=== PATIENT | female | born 1985 | race Caucasian/White ===

== ENCOUNTER 2023-02-27 10:55 | Emergency (ER) | payer OTHER, SELFPAY ==
[2023-02-27 11:22] VITALS: BP 134/100; PULSE 96; RESP 20; TEMP 37.1; O2SAT 97; BMI 33.6
[2023-02-27 11:50] LABS: Appearance Urine UA TURBID; Color Urine UA ORANGE
[2023-02-27 11:52] LABS: Pregnancy Test Urine Negative (Negative)
[2023-02-27 11:54] LABS: RBC Urine 30-100/HPF (0-5/HPF); WBC Urine 0-1/HPF (0-5/HPF)
[2023-02-27 11:55] LABS: Bacteria Urine Occasional (0-1); Culture Indicated Urine Cult Not Indicated; Squamous Epithelial Cell Urine 0-1 /HPF (0-5/HPF)
--- NOTE | 2023-02-27 11:59 | DI.CT.S_ITS ---
PROCEDURE: CT ABDOMEN PELVIS W CON INDICATIONS: ABDOMEN PAIN TECHNIQUE: After the administration of intravenous contrast, axial sections acquired from the lung bases to the pubic symphysis. Coronal and sagittal reformats were performed. For radiation dose reduction, the following was used: automated exposure control, adjustment of mA and/or kV according to patient size. COMPARISON: None. FINDINGS: Image quality: Excellent. Lung bases: Unremarkable. Heart: No significant findings. ABDOMEN: Liver: Unremarkable. Gallbladder: Unremarkable. Biliary ducts: Unremarkable. Pancreas: Unremarkable. Spleen: Unremarkable. Adrenal Glands: Unremarkable. Kidneys and Ureters: Unremarkable. Stomach and Bowel: The distal ileum inserting on the cecum may or may not be the original terminal ileum. As it enters the cecum, there is mild wall thickening, predominantly involving the cecum. This may potentially represent mild changes of Crohn's ileocolitis, or may be postsurgical. The small bowel and colon are otherwise unremarkable. Peritoneum: No abnormal intraperitoneal fluid. No free air. Ventral Wall: No hernias. Abdominal Nodes: No retroperitoneal or mesenteric adenopathy by size criteria. Vessels: Aorta and inferior vena cava are normal in size. PELVIS: Pelvic Organs: There is a ruptured collapsed left ovarian cyst, which is enhancing peripherally, with a small amount of associated pelvic ascites, slightly greater than physiologic.. Bladder: Unremarkable. Pelvic Nodes: No enlarged lymph nodes. Miscellaneous: No hernias are seen. Bones: Unremarkable. IMPRESSION: 1. There is thickening involving the cecum and most distal aspect of the ileum which may potentially represent mild changes of ileocolitis secondary to Crohn's disease, or may be postsurgical. 2. Ruptured left ovarian cyst with mild pelvic ascites. Dictated by: Chandler Torres M.D. on 02/27/2023 at 13:47 Approved by: Chandler Torres M.D. on 02/27/2023 at 14:03
[2023-02-27] MEDS: KETOROLAC 30 MG/ML VIAL 15 MG IV (12:22)
[2023-02-27] MEDS: ONDANSETRON 4 MG/2 ML INJ IV ×2 (12:23→14:48)
[2023-02-27 12:25] LABS: Add Manual Diff / Slide Review NO; Basophils Absolute Auto 100 /uL (0-100); Basophils Percent Auto 0.8 % (0-2); Eosinophils Absolute Auto 200 /uL (0-450); Eosinophils Percent Auto 2.4 % (2-4); Hematocrit 42.1 % (36-46); Hemoglobin 14.3 g/dL (12.0-16.0); Lymphocytes Absolute Auto 3400 /uL (1100-4500); Lymphocytes Percent Auto 33.4 % (25-40); Mean Corpuscular HGB Conc 33.9 % (30-36); Mean Corpuscular Hemoglobin 28.7 PG (26-34); Mean Corpuscular Volume 84.8 fL (80-100); Monocytes Absolute Auto 500 /uL (0-900); Monocytes Percent Auto 5.1 % (3-14); Neutrophils Absolute Auto 6000 /uL (1500-7000); Neutrophils Percent Auto 58.3 % (50-75); Platelet Count 343 X10^3/uL (150-400); Prothrombin Time 11.7 SECONDS (10.1-12.7); Red Blood Cell Count 4.96 X10^6/uL (4.0-5.2); Red Cell Distribution Width 13.1 % (11.6-14.8); White Blood Cell Count 10.2 X10^3/uL (4.5-11.0)
--- NOTE | 2023-02-27 12:25 | PC.NURSE ---
Pt taken to rm 5, NAD easy work of breathing. IV placed. pt advised to wait in fast track waiting area for CT scan. Pt ambulated out of room with stready gait. Called on red phone and spoke to CHERYL Oneil reporting intense back pain and nausea. Terrance Cardenas PAC made aware. Pt brought by RN to room 3 and torodol and zofran given. emesis bag provided. pt ambulated to CT with TANNER Ryan.
[2023-02-27 12:28] LABS: PTT Partial Thromboplastin Tim 33 SECONDS (26-36)
[2023-02-27 12:29] LABS: Alanine Aminotransferase 18 IU/L (<35); Albumin 4.2 g/dL (3.5-5.0); Albumin Globulin Ratio 1.2 (1.0-2.8); Alkaline Phosphatase 54 U/L (38-126); Aspartate Aminotransferase 23 IU/L (14-36); BUN Creatinine Ratio 14.3 (6-22); Bilirubin Total 0.4 mg/dL (0.2-1.3); Blood Urea Nitrogen 9 mg/dL (7-17); Calcium 9.2 mg/dL (8.4-10.2); Carbon Dioxide 23 mmol/L (22-32); Chloride 105 mmol/L (98-107); Estimated Glomerular Filt Rate > 60 mL/min (>60); Globulin 3.5 g/dL (1.7-4.1); Glucose 101 mg/dL (70-100); HEMOLYSIS 17 (0-50); Lipase 59 U/L (23-300); Potassium 4.3 mmol/L (3.4-5.1); Sodium 136 mmol/L (137-145); Total Protein 7.7 g/dL (6.3-8.2)
[2023-02-27] MEDS: MORPHINE 4 MG/ML INJ IV ×2 (13:18→14:48)
--- NOTE | 2023-02-27 13:26 | ED.FEMALEGU ---
HPI - Female Genitourinary <Terrance Cardenas PA-C - Last Filed: 02/27/23 15:48> General Chief complaint: Urogenital-Female Stated complaint: UTI/Kidney Infection Time Seen by Provider: 02/27/23 11:39 Source: patient Mode of arrival: Family Vehicle History of Present Illness HPI Narrative: 37-year-old female with past medical history Crohn's disease presents to the ED with 5 days of dysuria, urinary urgency, urinary frequency, flank pain. Patient states that she started taking azo when she started feeling the symptoms of a UTI, however her symptoms persisted and patient states that she has had bilateral flank pain and lower back pain, nausea, vomiting for the last 3 days. Patient states that the pain is also wrapping around to her right groin. Patient saw a [facility] provider 2 days ago who started her on Macrobid for a UTI. Patient has taken 2 doses of the antibiotic thus far. Patient states that she just does not feel well, therefore came into the ED today for further evaluation. Patient has had a partial bowel resection due to the Crohn's, no longer has an appendix. Related Data Home Medications Medication Instructions Recorded Confirmed nitrofurantoin 1 cap PO BID 02/27/23 02/27/23 monohydrate/macrocrystals 100 mg capsule Previous Rx's Medication Instructions Recorded prednisone 20 mg tablet See Rx Instructions .Route 02/27/23 .COMPLEX #11 tabs tramadol 50 mg tablet 50 mg PO TID PRN pain 3 days #10 02/27/23 tabs Allergies Allergy/AdvReac Type Severity Reaction Status Date / Time mesalamine [From Asacol] Allergy Rash Verified 02/27/23 11:31 Sulfa (Sulfonamide Allergy Swelling Verified 02/27/23 11:30 Antibiotics) of Lip/Tongue/Throat prochlorperazine AdvReac Anxiety Verified 02/27/23 11:32 [From Compazine] alchol wipes AdvReac Rash Uncoded 02/27/23 11:33 Review of Systems <Terrance Cardenas PA-C - Last Filed: 02/27/23 15:48> Review of Systems ROS Unobtainable: All systems reviewed & are unremarkable except as noted in HPI and below Constitutional Constitutional: Denies chills, Reports fatigue, Denies fever(s), Denies frequent falls, Denies lethargy and Denies weakness Eyes Eyes: Denies change in vision, Denies eye discharge, Denies irritation and Denies loss of vision ENT Ears, Nose, Mouth, and Throat: Denies change in voice, Denies dizziness, Denies neck pain, Denies sore throat and Denies throat swelling Cardiovascular Cardiovascular: Denies chest pain, Denies irregular heart rhythm, Denies lightheadedness, Denies palpitations, Denies dyspnea, Denies dyspnea on exertion and Denies orthopnea Respiratory Respiratory: Denies cough, Denies dyspnea, Denies dyspnea on exertion and Denies wheezing Gastrointestinal Gastrointestinal: Reports abdominal pain, Denies change in bowel habits, Denies diarrhea, Reports nausea and Reports vomiting Genitourinary Genitourinary: Reports hematuria, Reports dysuria, Denies flank pain, Denies urinary incontinence and Reports urinary urgency Musculoskeletal Musculoskeletal: Reports back pain, Denies muscle weakness, Denies neck pain, Denies numbness and Denies tingling Integumentary/Breasts Skin/Breast: Denies pruritus, Denies erythema, Denies rash and Denies wounds Neurologic Neurologic: Denies behavioral changes, Denies confusion, Denies dizziness, Denies frequent falls, Denies loss of vision, Denies numbness, Denies tingling and Denies weakness Psychiatric Psychiatric: Denies anxiety, Denies behavioral changes, Denies confusion, Denies depression, Denies homicidal ideation and Denies suicidal ideation Endocrine Endocrine: Reports fatigue, Denies flushing and Denies palpitations Hematologic/Lymphatic Hematologic/Lymphatic: Denies easy bruising Allergic/Immunologic Allergic/Immunologic: Denies urticaria, Denies throat swelling and Denies wheezing Patient History <Terrance Cardenas PA-C - Last Filed: 02/27/23 15:48> alcohol intake frequency: 0-2 drinks per day Substance Use Type: marijuana Exam <Terrance Cardenas PA-C - Last Filed: 02/27/23 15:48> Narrative Exam Narrative: Const General:?cooperative, healthy appearing and comfortable [facility] Head:?normal to inspection Ears:?hearing grossly normal bilaterally Nose:?external nose normal Face and sinus:?normal facial exam and sinuses nontender Mouth:?oral mucosae normal Throat:?posterior oropharynx normal Eyes General:?appearance normal, both eyes and all related structures Neck Neck:?normal visual inspection and no lymphadenopathy noted Resp Effort & Inspection:?normal respiratory effort Auscultation:?clear to auscultation bilaterally Cardio Rate:?regular rate Rhythm:?regular rhythm GI Abdomen is soft, nondistended. Abdomen is tender to palpation in the right lower quadrant. There is no CVA tenderness. Neuro General:?patient alert, patient awake and patient oriented x3 Initial Vital Signs Initial Vital Signs: Vital Signs Temperature 98.7 F 02/27/23 11:22 Pulse Rate 96 H 02/27/23 11:22 Respiratory Rate 20 02/27/23 11:22 Blood Pressure 134/100 H 02/27/23 11:22 Pulse Oximetry 97 02/27/23 11:22 Oxygen Delivery Method Room Air 02/27/23 11:22 <Lyn Hamilton DO - Last Filed: 03/01/23 07:32> Initial Vital Signs Initial Vital Signs: Vital Signs Temperature 98.7 F 02/27/23 11:22 Pulse Rate 96 H 02/27/23 11:22 Respiratory Rate 20 02/27/23 11:22 Blood Pressure 134/100 H 02/27/23 11:22 Pulse Oximetry 97 02/27/23 11:22 Oxygen Delivery Method Room Air 02/27/23 11:22 Course <Terrance Cardenas PA-C - Last Filed: 02/27/23 15:48> Orders Ordered: Discontinued Medications Ketorolac Tromethamine (Ketorolac 30 Mg/Ml Vial) 15 mg IV NOW ONE Stop: 02/27/23 12:20 Last Admin: 02/27/23 12:22 Dose: 15 mg Documented By: TRESA Morphine Sulfate (Morphine 4 Mg/Ml Inj) 4 mg IV NOW ONE Stop: 02/27/23 13:11 Last Admin: 02/27/23 13:18 Dose: 4 mg Documented By: TRESA Morphine Sulfate (Morphine 4 Mg/Ml Inj) 4 mg IV NOW ONE Stop: 02/27/23 14:39 Last Admin: 02/27/23 14:48 Dose: 4 mg Documented By: TRESA Ondansetron HCl (Ondansetron 4 Mg Odt) 4 mg PO NOW PRN PRN Reason: Nausea And Vomiting Ondansetron HCl (Ondansetron 4 Mg/2 Ml Inj) 4 mg IV NOW PRN PRN Reason: Nausea And Vomiting Last Admin: 02/27/23 12:23 Dose: 4 mg Documented By: TRESA Ondansetron HCl (Ondansetron 4 Mg/2 Ml Inj) 4 mg IV NOW ONE Stop: 02/27/23 14:38 Last Admin: 02/27/23 14:48 Dose: 4 mg Documented By: CTS Vital Signs Vital signs: Vital Signs - 8 hr 02/27/23 11:22 02/27/23 13:27 02/27/23 14:53 Temperature 98.7 F Pulse Rate 96 H 84 74 Respiratory Rate 20 16 16 Blood Pressure 134/100 H 117/82 131/83 Pulse Oximetry 97 99 97 Oxygen Delivery Method Room Air Room Air Room Air <Lyn Hamilton, DO - Last Filed: 03/01/23 07:32> Orders Ordered: Discontinued Medications Ketorolac Tromethamine (Ketorolac 30 Mg/Ml Vial) 15 mg IV NOW ONE Stop: 02/27/23 12:20 Last Admin: 02/27/23 12:22 Dose: 15 mg Documented By: TRESA Morphine Sulfate (Morphine 4 Mg/Ml Inj) 4 mg IV NOW ONE Stop: 02/27/23 13:11 Last Admin: 02/27/23 13:18 Dose: 4 mg Documented By: TRESA Morphine Sulfate (Morphine 4 Mg/Ml Inj) 4 mg IV NOW ONE Stop: 02/27/23 14:39 Last Admin: 02/27/23 14:48 Dose: 4 mg Documented By: TRESA Ondansetron HCl (Ondansetron 4 Mg Odt) 4 mg PO NOW PRN PRN Reason: Nausea And Vomiting Ondansetron HCl (Ondansetron 4 Mg/2 Ml Inj) 4 mg IV NOW PRN PRN Reason: Nausea And Vomiting Last Admin: 02/27/23 12:23 Dose: 4 mg Documented By: TRESA Ondansetron HCl (Ondansetron 4 Mg/2 Ml Inj) 4 mg IV NOW ONE Stop: 02/27/23 14:38 Last Admin: 02/27/23 14:48 Dose: 4 mg Documented By: TRESA Vital Signs Vital signs: Vital Signs - 8 hr 02/27/23 11:22 02/27/23 13:27 02/27/23 14:53 Temperature 98.7 F Pulse Rate 96 H 84 74 Respiratory Rate 20 16 16 Blood Pressure 134/100 H 117/82 131/83 Pulse Oximetry 97 99 97 Oxygen Delivery Method Room Air Room Air Room Air MDM - Female Genitourinary <Hyma ROLANDO Cardenas - Last Filed: 02/27/23 15:48> Lab Data 02/27/23 12:05 02/27/23 12:05 Labs: Lab Results 02/27/23 02/27/23 02/27/23 Range/Units 11:40 11:40 12:05 WBC 10.2 (4.5-11.0) X10^3/uL RBC 4.96 (4.0-5.2) X10^6/uL Hgb 14.3 (12.0-16.0) g/dL Hct 42.1 (36-46) % MCV 84.8 (80-100) fL MCH 28.7 (26-34) PG MCHC 33.9 (30-36) % RDW 13.1 (11.6-14.8) % Plt Count 343 (150-400) X10^3/uL Neut % (Auto) 58.3 (50-75) % Lymph % (Auto) 33.4 (25-40) % [place] % (Auto) 5.1 (3-14) % Eos % (Auto) 2.4 (2-4) % Baso % (Auto) 0.8 (0-2) % Neut # (Auto) 6000 (5179-5571) /uL Lymph # (Auto) 3400 (5505-1706) /uL [place] # (Auto) 500 (0-900) /uL Eos # (Auto) 200 (0-450) /uL Baso # (Auto) 100 (0-100) /uL PT (10.1-12.7) SECONDS INR (0.9-1.3) APTT (26-36) SECONDS Sodium (137-145) mmol/L Potassium (3.4-5.1) mmol/L Chloride (98-107) mmol/L Carbon Dioxide (22-32) mmol/L BUN (7-17) mg/dL Creatinine (0.52-1.04) mg/dL Estimated GFR (>60) mL/min BUN/Creatinine Ratio (6-22) Glucose (70-100) mg/dL Calcium (8.4-10.2) mg/dL Total Bilirubin (0.2-1.3) mg/dL AST (14-36) IU/L ALT (<35) IU/L Alkaline Phosphatase (38-126) U/L Total Protein (6.3-8.2) g/dL Albumin (3.5-5.0) g/dL Globulin (1.7-4.1) g/dL Albumin/Globulin Ratio (1.0-2.8) Lipase (23-300) U/L Urine Color Dent Urine Appearance Turbid Urine pH TNP Ur Specific [place] TNP Urine Protein TNP Urine Glucose (UA) TNP Urine Ketones TNP Urine Occult Blood TNP Urine Nitrate TNP Urine Bilirubin TNP Urine Urobilinogen TNP Ur Leukocyte Esterase TNP Urine RBC 30-100/hpf H (0-5/HPF) Urine WBC 0-1/hpf (0-5/HPF) Ur Squamous Epith Cells 0-1 /hpf (0-5/HPF) Urine Bacteria Occasional (0-1) (None) Ur Culture Indicated? Cult not indicated Urine Test Negative (Negative) 02/27/23 02/27/23 Range/Units 12:05 12:05 WBC (4.5-11.0) X10^3/uL RBC (4.0-5.2) X10^6/uL Hgb (12.0-16.0) g/dL Hct (36-46) % MCV (80-100) fL MCH (26-34) PG MCHC (30-36) % RDW (11.6-14.8) % Plt Count (150-400) X10^3/uL Neut % (Auto) (50-75) % Lymph % (Auto) (25-40) % [place] % (Auto) (3-14) % Eos % (Auto) (2-4) % Baso % (Auto) (0-2) % Neut # (Auto) (2115-4841) /uL Lymph # (Auto) (9750-9627) /uL [place] # (Auto) (0-900) /uL Eos # (Auto) (0-450) /uL Baso # (Auto) (0-100) /uL PT 11.7 (10.1-12.7) SECONDS INR 1.0 (0.9-1.3) APTT 33 (26-36) SECONDS Sodium 136 L (137-145) mmol/L Potassium 4.3 (3.4-5.1) mmol/L Chloride 105 (98-107) mmol/L Carbon Dioxide 23 (22-32) mmol/L BUN 9 (7-17) mg/dL Creatinine 0.63 (0.52-1.04) mg/dL Estimated GFR > 60 (>60) mL/min BUN/Creatinine Ratio 14.3 (6-22) Glucose 101 H (70-100) mg/dL Calcium 9.2 (8.4-10.2) mg/dL Total Bilirubin 0.4 (0.2-1.3) mg/dL AST 23 (14-36) IU/L ALT 18 (<35) IU/L Alkaline Phosphatase 54 (38-126) U/L Total Protein 7.7 (6.3-8.2) g/dL Albumin 4.2 (3.5-5.0) g/dL Globulin 3.5 (1.7-4.1) g/dL Albumin/Globulin Ratio 1.2 (1.0-2.8) Lipase 59 (23-300) U/L Urine Color Urine Appearance Urine pH Ur Specific [place] Urine Protein Urine Glucose (UA) Urine Ketones Urine Occult Blood Urine Nitrate Urine Bilirubin Urine Urobilinogen Ur Leukocyte Esterase Urine RBC (0-5/HPF) Urine WBC (0-5/HPF) Ur Squamous Epith Cells (0-5/HPF) Urine Bacteria (None) Ur Culture Indicated? Urine Test (Negative) MDM Narrative Medical decision making narrative: 37-year-old female with past medical history Crohn's disease presents to the ED with 5 days of dysuria, urinary urgency, urinary frequency, flank pain. Concern for UTI versus pyelonephritis versus nephrolithiasis versus Crohn's flare versus musculoskeletal sprain/strain versus other intra-abdominal pathology versus other. Will obtain labs, UA, urine hCG. Will give Zofran, ketorolac for symptoms. Will reassess. Patient complained of worsening pain in the right groin, patient was given morphine. Patient's pain well controlled. Labs within normal limits. Urine shows hematuria, no UTI. CT abdomen pelvis shows it thickening involving the cecum and most some aspect of the ileum which may potentially represent mild changes of ileocolitis secondary to Crohn's disease, or may be postsurgical. There is also a left ovarian cyst that is ruptured with mild pelvic ascites. Discussed findings with patient. Patient prefers to take the prescription of prednisone for the Crohn's flare, will however consult her GI specialist before starting the prescription. 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 Advised patient to consult with GI specialist as well as paint roller covermaker for further evaluation. Advised patient to continue antibiotics for the UTI as prescribed. ED return precautions were discussed with patient. Patient verbalized understanding. Medical records reviewed: Yes <Lyn Hamilton, DO - Last Filed: 03/01/23 07:32> Lab Data Labs: Lab Results 02/27/23 02/27/23 02/27/23 Range/Units 11:40 11:40 12:05 WBC 10.2 (4.5-11.0) X10^3/uL RBC 4.96 (4.0-5.2) X10^6/uL Hgb 14.3 (12.0-16.0) g/dL Hct 42.1 (36-46) % MCV 84.8 (80-100) fL MCH 28.7 (26-34) PG MCHC 33.9 (30-36) % RDW 13.1 (11.6-14.8) % Plt Count 343 (150-400) X10^3/uL Neut % (Auto) 58.3 (50-75) % Lymph % (Auto) 33.4 (25-40) % [place] % (Auto) 5.1 (3-14) % Eos % (Auto) 2.4 (2-4) % Baso % (Auto) 0.8 (0-2) % Neut # (Auto) 6000 (3020-0117) /uL Lymph # (Auto) 3400 (9989-7046) /uL [place] # (Auto) 500 (0-900) /uL Eos # (Auto) 200 (0-450) /uL Baso # (Auto) 100 (0-100) /uL PT (10.1-12.7) SECONDS INR (0.9-1.3) APTT (26-36) SECONDS Sodium (137-145) mmol/L Potassium (3.4-5.1) mmol/L Chloride (98-107) mmol/L Carbon Dioxide (22-32) mmol/L BUN (7-17) mg/dL Creatinine (0.52-1.04) mg/dL Estimated GFR (>60) mL/min BUN/Creatinine Ratio (6-22) Glucose (70-100) mg/dL Calcium (8.4-10.2) mg/dL Total Bilirubin (0.2-1.3) mg/dL AST (14-36) IU/L ALT (<35) IU/L Alkaline Phosphatase (38-126) U/L Total Protein (6.3-8.2) g/dL Albumin (3.5-5.0) g/dL Globulin (1.7-4.1) g/dL Albumin/Globulin Ratio (1.0-2.8) Lipase (23-300) U/L Urine Color [place] Urine Appearance Turbid Urine pH TNP Ur Specific [place] TNP Urine Protein TNP Urine Glucose (UA) TNP Urine Ketones TNP Urine Occult Blood TNP Urine Nitrate TNP Urine Bilirubin TNP Urine Urobilinogen TNP Ur Leukocyte Esterase TNP Urine RBC 30-100/hpf H (0-5/HPF) Urine WBC 0-1/hpf (0-5/HPF) Ur Squamous Epith Cells 0-1 /hpf (0-5/HPF) Urine Bacteria Occasional (0-1) (None) Ur Culture Indicated? Cult not indicated Urine Test Negative (Negative) 02/27/23 02/27/23 Range/Units 12:05 12:05 WBC (4.5-11.0) X10^3/uL RBC (4.0-5.2) X10^6/uL Hgb (12.0-16.0) g/dL Hct (36-46) % MCV (80-100) fL MCH (26-34) PG MCHC (30-36) % RDW (11.6-14.8) % Plt Count (150-400) X10^3/uL Neut % (Auto) (50-75) % Lymph % (Auto) (25-40) % [place] % (Auto) (3-14) % Eos % (Auto) (2-4) % Baso % (Auto) (0-2) % Neut # (Auto) (3027-7615) /uL Lymph # (Auto) (6419-6738) /uL [place] # (Auto) (0-900) /uL Eos # (Auto) (0-450) /uL Baso # (Auto) (0-100) /uL PT 11.7 (10.1-12.7) SECONDS INR 1.0 (0.9-1.3) APTT 33 (26-36) SECONDS Sodium 136 L (137-145) mmol/L Potassium 4.3 (3.4-5.1) mmol/L Chloride 105 (98-107) mmol/L Carbon Dioxide 23 (22-32) mmol/L BUN 9 (7-17) mg/dL Creatinine 0.63 (0.52-1.04) mg/dL Estimated GFR > 60 (>60) mL/min BUN/Creatinine Ratio 14.3 (6-22) Glucose 101 H (70-100) mg/dL Calcium 9.2 (8.4-10.2) mg/dL Total Bilirubin 0.4 (0.2-1.3) mg/dL AST 23 (14-36) IU/L ALT 18 (<35) IU/L Alkaline Phosphatase 54 (38-126) U/L Total Protein 7.7 (6.3-8.2) g/dL Albumin 4.2 (3.5-5.0) g/dL Globulin 3.5 (1.7-4.1) g/dL Albumin/Globulin Ratio 1.2 (1.0-2.8) Lipase 59 (23-300) U/L Urine Color Urine Appearance Urine pH Ur Specific [place] Urine Protein Urine Glucose (UA) Urine Ketones Urine Occult Blood Urine Nitrate Urine Bilirubin Urine Urobilinogen Ur Leukocyte Esterase Urine RBC (0-5/HPF) Urine WBC (0-5/HPF) Ur Squamous Epith Cells (0-5/HPF) Urine Bacteria (None) Ur Culture Indicated? Urine Test (Negative) Discharge Plan Departure Patient Disposition: Home Clinical Impression: Crohn's disease Instructions: DI for Crohn's Disease Flare Activity Restrictions/Additional Instructions: You were evaluated in the ED today for abdominal pain and urinary discomfort. Your urine is positive for blood today, however does not show an infection, which could well be since you have started antibiotics for the UTI already. Please complete the course of antibiotics that you were prescribed for the UTI. Your CT abdomen pelvis does show an inflammation in the right lower quadrant of your abdomen which is consistent with where you are experiencing the pain. This is likely secondary to a Crohn's flare. Your symptoms improved with morphine and Zofran. You are being sent home with a prescription for prednisone for the Crohn's flare. You may talk to your GI specialist prior to starting that prescription. Please follow-up with your paint roller covermaker for further pain control. Return to the ED if you have worsening symptoms, persistent vomiting. Prescriptions: New prednisone 20 mg tablet See Rx Instructions .ROUTE .COMPLEX Qty: 11 0RF Rx Instructions: 60 mg orally on day 1; 40 mg orally for next 4 days tramadol 50 mg tablet 50 mg PO TID PRN (Reason: pain) 3 Days Qty: 10 0RF No Action nitrofurantoin monohyd/m-cryst 100 mg capsule 1 cap PO BID Referrals: Miscellaneous,Doctor, MD [Primary Care Provider] - Stand Alone Forms: Patient Portal/API <Lyn Hamilton DO - Last Filed: 03/01/23 07:32> Cosign ED Attending Katrina Attestation: I was immediately available in the department for consultation. Documentation has been reviewed.
[2023-02-27 13:27] VITALS: BP 117/82; PULSE 84; RESP 16; O2SAT 99
[2023-02-27 14:53] VITALS: BP 131/83; PULSE 74; RESP 16; O2SAT 97
== END 2023-02-27 14:53 | disposition home or self-care (01) ==
PROVIDERS: Emergency Provider Student in an Organized Health Care Education/Training Program
DX: K50.90 Crohn's disease, unspecified, without complications (principal)
CPT/HCPCS: 36415; 74177; 80053; 81001; 81025; 83690; 85025; 85610; 85730; 96374; 96375; 96376; 99284; J1885; J2270; J2405; Q9967